=== PATIENT | male | born 1935 | race Caucasian/White ===

== ENCOUNTER 2017-09-05 09:14 | Day surgery (SDC) | payer MEDICARE ==
[~2017-09-05] VITALS: Ht 180.3 cm; Wt 92.2 kg
[2017-09-05] VITALS (18 sets, daily range): BP systolic 124–166; BP diastolic 73–114
[~2017-09-05 09:14] MED LIST: ENAL20TA75 PO; FURO-150 PO; HYDR25TA4 PO; METO-539 PO; POTA20TA19 PO; RIVA20TA PO
[2017-09-05 09:55] LABS: BASOPHILS % (AUTO) 0.7 % (0-1); EOSINOPHILS # (AUTO) 0.4 X10'3 (0-0.9); EOSINOPHILS % (AUTO) 5.9 % (0-6); HEMATOCRIT 39.3 % (42.0-52.0); HEMOGLOBIN 13.4 g/dl (14.0-17.9); LYMPHOCYTES # (AUTO) 0.7 X10'3 (1.1-4.8); LYMPHOCYTES % (AUTO) 11.7 % (21-51); MEAN CORPUSCULAR HEMOGLOBIN 27.3 PG (27.0-31.0); MEAN CORPUSCULAR VOLUME 80.3 FL (78-98); MEAN PLATELET VOLUME 6.6 FL (7.4-10.4); MONOCYTES # (AUTO) 0.5 X10'3 (0-0.9); NEUTROPHILS # (AUTO) 4.6 X10'3 (1.8-7.7); NEUTROPHILS % (AUTO) 73.7 % (42-75); PLATELET COUNT 215 X10'3 (140-440); RED CELL DISTRIBUTION WIDTH 14.7 % (11.5-14.5); WHITE BLOOD COUNT 6.3 X10'3 (4.5-11.0)
[2017-09-05] MEDS ORDERED: normal saline 1000ml 1,000 ML IV SCH (10:04)
[2017-09-05] MEDS ORDERED: LIDOcaine 1%/PF (10mg/ml) 5ml vial SQ ONE (10:05)
[2017-09-05] MEDS ORDERED: METO100T14 PO (10:05)
[2017-09-05] MEDS ORDERED: fentaNYL/PF 50MCG/1 ML 2ML syringe IV PRN (10:05)
[2017-09-05] MEDS ORDERED: FURO-150 PO (10:05)
[2017-09-05] MEDS ORDERED: midazolam 2 mg/2 ml injection IV PRN (10:05)
[2017-09-05] MEDS ORDERED: fentaNYL/PF 50MCG/1 ML 2ML syringe ONE (10:57)
[2017-09-05] MEDS ORDERED: midazolam 2 mg/2 ml injection ONE (10:57)
[2017-09-05] MEDS ORDERED: HYDROcodone/acetaminophen 5mg/325mg tablet PO PRN (11:25)
== END 2017-09-05 13:20 | disposition home or self-care (01) ==
LOC: SSTAY O 09:14
PROVIDERS: ATTEND Radiology Diagnostic Radiology
DX: C78.02 Secondary malignant neoplasm of left lung (principal); C61 Malignant neoplasm of prostate; I48.91 Unspecified atrial fibrillation; G89.29 Other chronic pain; E78.5 Hyperlipidemia, unspecified; I25.10 Atherosclerotic heart disease of native coronary artery without angina pectoris; Z98.890 Other specified postprocedural states; Z79.01 Long term (current) use of anticoagulants; Z79.899 Other long term (current) drug therapy
CPT/HCPCS: 32405; 36415; 77012; 85025; 99152; 99153; J2250; J3010; J7030; 88305; 88341; 88342